=== PATIENT | female | born 1965 | race Caucasian/White ===

== ENCOUNTER 2022-09-05 01:27 | Day surgery (SDC) | payer OTHER, SELFPAY ==
[2022-08-29 14:43] VITALS: BMI 18.8
[2022-09-05 08:06] VITALS: BP 122/60; PULSE 64; RESP 18; TEMP 36.3; O2SAT 100; BMI 18.7
[2022-09-05] MEDS: LACTATED RINGERS 1,000 ML 150 ML IV CONT (08:15)
--- NOTE | 2022-09-05 08:20 | P.PNAN_ITS ---
Anes - Initial Pre Proc Eval Procedure: Operation Date: 09/05/22 09:00 Proposed Procedures p Screening Colonoscopy - Dharmesh Salazar MD Date/Time: 09/05/22 08:20 Surgeon: Dharmesh Salazar MD Pre Op Diagnosis: family hx colon ca, family hx colon polyps Patient Data Age: 56 Gender: F Height: 1.75 m Weight: 57.5 kg Last Vital Signs Temp 97.4 F L 09/05/22 08:06 Pulse 64 09/05/22 08:06 Resp 18 09/05/22 08:06 BP 122/60 09/05/22 08:06 Pulse Ox 100 09/05/22 08:06 O2 Del Method Room Air 09/05/22 08:06 Allergies Allergy/AdvReac Type Severity Reaction Status Date / Time No Known Allergies Allergy Verified 08/29/22 14:46 Home Medications Medication Instructions Recorded Confirmed Type sodium,potassium,mag sulfates 17.5 See Rx Instructions PO .COMPLEX 07/18/22 08/29/22 Rx gram-3.13 gram-1.6 gram oral soln #354 mL (Suprep Bowel Prep Kit) cholecalciferol (vitamin D3) 25 25 mcg PO DAILY 08/29/22 08/29/22 History mcg (1,000 unit) chewable tablet (Vitamin D3) cyanocobalamin (vitamin B-12) 1,000 mcg PO DAILY 08/29/22 08/29/22 History 1,000 mcg tablet (Vitamin B-12) sodium,potassium,mag sulfates 17.5 See Rx Instructions .Route 09/01/22 Rx gram-3.13 gram-1.6 gram oral soln .COMPLEX #354 mL Patient hx anesthesia problems: none Family hx anesthesia problems: none Results Review: All pre-operative results and documents have been reviewed as part of the pre- operative evaluation. [facility] Social History Social History Smoking status: Never smoker Alcohol intake: current Drinks per week: 10 Alcohol use details: BEERS Substance use: never Substance use type: does not use Living arrangements: with family Spiritual care concerns: No Anes - Eval Final PreProcedure Day of Procedure 09/05/22 08:20 Patient weight: normal Heart: regular rate and rhythm Lungs: clear to auscultation Airway: Mallampati scale class II Neurological: alert and oriented Last oral intake: >/= 8 hours ASA classification: I Emergent: no Anesthetic plan: proceed Anesthesia type and monitoring: general GIVS and standard monitoring Results Review: All pre-operative results and documents have been reviewed as part of the pre- operative evaluation. Informed Consent: The patient's anesthetic plan and its attendant risks and benefits were discussed with the patient/family/POA. Questions were solicited and answers provided to the satisfaction of the patient/family/POA.
--- NOTE | 2022-09-05 08:37 | P.HP_ITS ---
History of Present Illness History of Present Illness Consent: Risks, benefits, and alternatives have been discussed and questions answered. Patient agrees to proceed with procedure. Chief complaint: family hx colon ca, family hx colon polyps Narrative: Sakshi Douglas is a 56 year old female Presents for screening colonoscopy. Family history is significant patient is mother had colon cancer. She may have had several other relatives with colon polyps. Patient states that her own weight appetite and bowel movements are not well. Pain patient denies abdominal pain. She has had no bleeding. She presents today for screening colonoscopy. Review of Systems Review of Systems: Review of systems noncontributory. [facility] Social History Social History Smoking status: Never smoker Alcohol intake: current Drinks per week: 10 Alcohol use details: BEERS Substance use: never Substance use type: does not use Living arrangements: with family Spiritual care concerns: No Meds Home Medications and Allergies Home Medications Medication Instructions Recorded Confirmed Type sodium,potassium,mag sulfates 17.5 See Rx Instructions PO .COMPLEX 07/18/22 08/29/22 Rx gram-3.13 gram-1.6 gram oral soln #354 mL (Suprep Bowel Prep Kit) cholecalciferol (vitamin D3) 25 25 mcg PO DAILY 08/29/22 08/29/22 History mcg (1,000 unit) chewable tablet (Vitamin D3) cyanocobalamin (vitamin B-12) 1,000 mcg PO DAILY 08/29/22 08/29/22 History 1,000 mcg tablet (Vitamin B-12) sodium,potassium,mag sulfates 17.5 See Rx Instructions .Route 09/01/22 Rx gram-3.13 gram-1.6 gram oral soln .COMPLEX #354 mL Allergies Allergy/AdvReac Type Severity Reaction Status Date / Time No Known Allergies Allergy Verified 08/29/22 14:46 Vital Signs Vital Signs - 24 hr 09/05/22 08:06 Temperature 97.4 F L Pulse Rate 64 Respiratory Rate 18 Blood Pressure 122/60 Pulse Oximetry 100 Oxygen Delivery Room Air Exam Narrative: Physical exam reveals patient to be alert. Vital signs stable. HEENT exam is unremarkable. Patient is anicteric. Lungs are clear to auscultation and percussion. Heart is without murmur or extra sounds. Abdomen bowel sounds are present soft nontender with no organomegaly. Digital external rectal exam is normal. Assessment and Plan Assessment and plan (1) Family history of colon cancer in mother: Code(s): Z80.0 - Family history of malignant neoplasm of digestive organs Status: Acute Assessment and Plan: Patient's mother had colon cancer. Plan for screening colonoscopy now and consider this a 5 year intervals in the future.
[2022-09-05 09:12] VITALS: BP 98/61; PULSE 60; RESP 15; O2SAT 99
[2022-09-05 09:22] VITALS: BP 102/57; PULSE 53; RESP 15; O2SAT 100
[2022-09-05 09:32] VITALS: BP 107/62; PULSE 59; RESP 19; O2SAT 100
== END 2022-09-05 09:48 | disposition home or self-care (01) ==
PROVIDERS: PCP Family Medicine; Visit Provider Internal Medicine Gastroenterology
PROC: 0DJD8ZZ Inspection of Lower Intestinal Tract, Via Natural or Artificial Opening Endoscopic (ICD-10-PCS; CPT 45378; principal; 2022-09-05 09:00)
DX: Z12.11 Encounter for screening for malignant neoplasm of colon (principal); Z80.0 Family history of malignant neoplasm of digestive organs; Z86.010 Personal history of colon polyps; K64.8 Other hemorrhoids
CPT/HCPCS: G0105; J2704; J7120